=== PATIENT | female | born 1965 | race Caucasian/White ===

== ENCOUNTER 2016-06-02 08:30 | Emergency (ER) | payer SELFPAY ==
--- NOTE | 2016-06-02 08:54 | EDM.PDOC ---
ED HPI GENERAL MEDICAL PROBLEM - General Chief Complaint: Behavioral/Psych Stated Complaint: attempted suicide Time Seen by Provider: 06/02/16 08:48 - History of Present Illness INITIAL COMMENTS - FREE TEXT/NARRATIVE: HISTORY AND PHYSICAL: History of present illness: Patient's 50-year-old female who presents with a concern of depressive episode with suicidal ideation patient states she planned on taking an overdose of over- the-counter medications she did take several Sleep-Aid and brought with her there appear to be [id number] analgesics. She is awake alert cooperative eager for help with her depression she has been admitted in the past for depression. She denies any other ingestion or concern Review of systems: As per history of present illness and below otherwise all systems reviewed and negative. Past medical history: As per history of present illness and as reviewed below otherwise noncontributory. Surgical history: As per history of present illness and as reviewed below otherwise noncontributory. Social history: No reported history of drug or alcohol abuse. Family history: As per history of present illness and as reviewed below otherwise noncontributory. Physical exam: HEENT: Atraumatic, normocephalic, pupils reactive, negative for conjunctival pallor or scleral icterus, mucous membranes moist, throat clear, neck supple, nontender, trachea midline. Lungs: Clear to auscultation, breath sounds equal bilaterally, chest nontender. Heart: S1S2, regular, negative for clicks, rubs, or JVD. Abdomen: Soft, nondistended, nontender. Negative for masses or hepatosplenomegaly. Negative for costovertebral tenderness. Pelvis: Stable nontender. Genitourinary: Deferred. Rectal: Deferred. Extremities: Atraumatic, negative for cords or calf pain. Neurovascular unremarkable. Neuro: Awake, alert, oriented. Cranial nerves II through XII unremarkable. Cerebellum unremarkable. Motor and sensory unremarkable throughout. Exam nonfocal. Diagnostics: CBC CMP EKG aspirin Tylenol level UA urine drug screen hCG Therapeutics: None Impression: #1 depressive episode with suicidal ideation Definitive disposition and diagnosis as appropriate pending reevaluation and review of above. - Related Data Allergies Allergy/AdvReac Type Severity Reaction Status Date / Time No Known Allergies Allergy Verified 06/02/16 08:41 Home Meds: Home Meds Aspirin 1 tab PO DAILY PRN 02/02/16 [History] Past Medical History - Past Health History Medical/Surgical History: Denies Medical/Surgical History HEENT History: Reports: None Cardiovascular History: Reports: None Respiratory History: Reports: None Gastrointestinal History: Reports: None Genitourinary History: Reports: None OPERATING MANAGER History: Reports: None Musculoskeletal History: Reports: Back pain, chronic Other Musculoskeletal History: Sprained left knee in January, placed on brace Neurological History: Reports: None Psychiatric History: Reports: None Endocrine/Metabolic History: Reports: None Hematologic History: Reports: None Immunologic History: Reports: None Dermatologic History: Reports: None - Infectious Disease History Infectious Disease History: Reports: None - Past Surgical History HEENT Surgical History: Reports: Tonsillectomy Social & Family History - Family History Family Medical History: Noncontributory - Tobacco Use Smoking Status *Q: Current Every Day Smoker Years of Tobacco use: 15 Packs/Tins Daily: 1 - Caffeine Use Caffeine Use: Reports: Soda Caffeine Use Comment: 2cups/day - Alcohol Use Days Per Week of Alcohol Use: 1 Number of Drinks Per Day: 12 Total Drinks Per Week: 12 - Recreational Drug Use Recreational Drug Use: No ED ROS GENERAL - Review of Systems Review Of Systems: ROS reveals no pertinent complaints other than HPI. ED EXAM, GENERAL - Physical Exam Exam: See Below (See dictation) Course - Vital Signs Last Recorded V/S: Last Vital Signs Temp 36.1 C 06/02/16 08:44 Pulse 95 06/02/16 08:44 Resp 18 06/02/16 08:44 BP 124/72 06/02/16 08:44 Pulse Ox 98 06/02/16 08:44 - Orders/Labs/Meds Orders: Active Orders 24 hr Category Date Time Status EKG Documentation Completion [RC] STAT Care 06/02/16 08:52 Ordered ACETAMINOPHEN [CHEM] Stat Lab 06/02/16 08:51 Ordered CBC WITH AUTO DIFF [HEME] Stat Lab 06/02/16 08:51 Ordered COMPREHENSIVE METABOLIC PN,CMP [CHEM] Stat Lab 06/02/16 08:51 Ordered DRUG SCREEN, URINE [URCHEM] Stat Lab 06/02/16 08:51 Uncollected ETHANOL BLOOD MEDICAL [CHEM] Stat Lab 06/02/16 08:51 Ordered HCG QUALITATIVE,URINE [URCHEM] Stat Lab 06/02/16 08:51 Uncollected SALICYLATE [CHEM] Stat Lab 06/02/16 08:51 Ordered Departure - Departure Time of Disposition: 08:53 Disposition: DC/Tfer to Psych Hosp/Unit 65 Condition: good Clinical Impression: Depressive disorder Forms: ED Department Discharge - My Orders Last 24 Hours: My Active Orders 06/02/16 08:51 ACETAMINOPHEN [CHEM] Stat CBC WITH AUTO DIFF [HEME] Stat COMPREHENSIVE METABOLIC PN,CMP [CHEM] Stat DRUG SCREEN, URINE [URCHEM] Stat ETHANOL BLOOD MEDICAL [CHEM] Stat HCG QUALITATIVE,URINE [URCHEM] Stat SALICYLATE [CHEM] Stat 06/02/16 08:52 EKG Documentation Completion [RC] STAT - Assessment/Plan Last 24 Hours: My Active Orders 06/02/16 08:51 ACETAMINOPHEN [CHEM] Stat CBC WITH AUTO DIFF [HEME] Stat COMPREHENSIVE METABOLIC PN,CMP [CHEM] Stat DRUG SCREEN, URINE [URCHEM] Stat ETHANOL BLOOD MEDICAL [CHEM] Stat HCG QUALITATIVE,URINE [URCHEM] Stat SALICYLATE [CHEM] Stat 06/02/16 08:52 EKG Documentation Completion [RC] STAT
[2016-06-02 09:50] LABS: CHLORIDE,CL 106 mmol/L (98-110); SODIUM,NA 140 mmol/L (136-146)
[2016-06-02 09:57] VITALS: BP 134/93
[2016-06-02 10:09] LABS: ACETAMINOPHEN < 3.0 ug/mL
== END 2016-06-02 09:43 ==
LOC: MW.ED 08:30
DX: R45.851 Suicidal ideations (principal); F17.210 Nicotine dependence, cigarettes, uncomplicated
CPT/HCPCS: 36415; 80053; 80305; 81025; 85025; 93005; 99285; G0480; 99283

== ENCOUNTER 2016-07-08 12:02 | Observation (INO) | payer SELFPAY ==
[2016-07-08] MEDS ORDERED: Ondansetron 4 MG/2 ML SDV IVPUSH ONE ×2 (12:09→12:16)
[2016-07-08] MEDS ORDERED: Sodium Chloride 0.9% 1,000 ML IV ONE ×2 (12:09→12:16)
[2016-07-08] MEDS ORDERED: Ketorolac 30 MG/ML SDV IVPUSH ONE (12:16)
--- NOTE | 2016-07-08 12:37 | EDM.PDOC ---
ED HPI GENERAL MEDICAL PROBLEM - General Chief Complaint: Abdominal Pain Stated Complaint: gallbladder Time Seen by Provider: 07/08/16 12:25 Source of Information: Reports: Patient History Limitations: Reports: No Limitations - History of Present Illness INITIAL COMMENTS - FREE TEXT/NARRATIVE: History of present illness: [50-year-old female presents with complaints of abdominal pain. Patient indicates she has is her gallbladder she had it evaluated in February and she was told that he needed to be removed, but she has failed to get a primary care provider to initiate the workup and authorization. Patient indicates at this time that the pain is stabbing and she would like to be evaluated.] Review of systems: As per history of present illness and below otherwise all systems reviewed and negative. Past medical history: As per history of present illness and as reviewed below otherwise noncontributory. Surgical history: As per history of present illness and as reviewed below otherwise noncontributory. Social history: No reported history of drug or alcohol abuse. Family history: As per history of present illness and as reviewed below otherwise noncontributory. Physical exam: HEENT: Atraumatic, normocephalic, pupils reactive, negative for conjunctival pallor or scleral icterus, mucous membranes moist, throat clear, neck supple, nontender, trachea midline. Lungs: Clear to auscultation, breath sounds equal bilaterally, chest nontender. Heart: S1S2, regular, negative for clicks, rubs, or JVD. Abdomen: Soft, protuberant abdomen with exquisite tenderness in right upper quadrant. Negative for masses or hepatosplenomegaly. Negative for costovertebral tenderness. Pelvis: Stable nontender. Genitourinary: Deferred. Rectal: Deferred. Extremities: Atraumatic, negative for cords or calf pain. Neurovascular unremarkable. Neuro: Awake, alert, oriented. Cranial nerves II through XII unremarkable. Cerebellum unremarkable. Motor and sensory unremarkable throughout. Exam nonfocal. Dr. Garcia consulted, and presented to evaluate the patient in the ED. Decision made to admit the patient in the hospital and give her antibiotics prior to surgery Dr. Boone called patient to be admitted to the floor. Diagnostics: [CBC, CMP, UA, urine hCG, gallbladder ultrasound] Therapeutics: [The fluids, Zofran, Toradol] Impression: [Acute cholecystitis] Plan: [C consulted Dr. Stephenson,] Definitive disposition and diagnosis as appropriate pending reevaluation and review of above. Lower Abdominal Pain Score (Numeric/FACES): 8 - Related Data Allergies Allergy/AdvReac Type Severity Reaction Status Date / Time No Known Allergies Allergy Verified 07/08/16 12:08 Home Meds: Home Meds Aspirin 1 tab PO DAILY PRN 02/02/16 [History] FLUoxetine [PROzac] 20 mg PO DAILY 07/08/16 [History] Past Medical History - Past Health History Medical/Surgical History: Denies Medical/Surgical History HEENT History: Reports: None Cardiovascular History: Reports: None Respiratory History: Reports: None Gastrointestinal History: Reports: None Genitourinary History: Reports: None PRACTICE LEAD History: Reports: None Musculoskeletal History: Reports: Back Pain, Chronic Other Musculoskeletal History: Sprained left knee in January, placed on brace Neurological History: Reports: None Psychiatric History: Reports: Addiction, Other (See Below) Other Psychiatric History: Admitted in [place] Endocrine/Metabolic History: Reports: None Hematologic History: Reports: None Immunologic History: Reports: None Dermatologic History: Reports: None - Infectious Disease History Infectious Disease History: Reports: None - Past Surgical History HEENT Surgical History: Reports: Tonsillectomy Social & Family History - Family History Family Medical History: Noncontributory - Tobacco Use Smoking Status *Q: Current Every Day Smoker Years of Tobacco use: 30 Packs/Tins Daily: 1 - Caffeine Use Caffeine Use: Reports: Coffee Caffeine Use Comment: 2cups/day - Alcohol Use Days Per Week of Alcohol Use: 1 Number of Drinks Per Day: 12 Total Drinks Per Week: 12 - Recreational Drug Use Recreational Drug Use: No ED ROS GENERAL - Review of Systems Review Of Systems: See Below (See history of present illness) ED EXAM, GENERAL - Physical Exam Exam: See Below (See history of present illness) Course - Vital Signs Last Recorded V/S: Last Vital Signs Temp 36.5 C 07/08/16 13:31 Pulse 86 07/08/16 16:11 Resp 18 07/08/16 16:11 BP 126/83 07/08/16 16:11 Pulse Ox 100 07/08/16 16:11 - Orders/Labs/Meds Orders: Active Orders 24 hr Category Date Time Status Gallbladder [Abdomen Ltd] [US] Stat Exams 07/08/16 13:19 Taken Lactated Ringers @ 125 MLS/HR(1,000ml) Med 07/08/16 16:15 Ordered Lactated Ringers [Ringers, Lactated] 1,000 ml IV ASDIRECTED Piperacillin/Tazobactam [Piperacil-Tazobact] 3.375 gm Med 07/08/16 16:15 Ordered Sodium Chloride 0.9% [Normal Saline] 50 ml IV Q8H Medication Orders Piperacillin Sod/Tazobactam (Sod 3.375 gm/ Sodium Chloride) 50 mls @ 100 mls/ hr IV Q8H ESTHER Lactated Ringer's (Ringers, Lactated) 1,000 mls @ 125 mls/hr IV ASDIRECTED [facility] Labs: Laboratory Tests 07/08/16 07/08/16 07/08/16 Range/Units 12:08 12:08 12:08 WBC Cancelled 12.86 H RBC Cancelled 4.59 Hgb Cancelled 14.2 Hct Cancelled 42.3 MCV Cancelled 92.2 MCH Cancelled 30.9 MCHC Cancelled 33.6 RDW Std Deviation Cancelled 44.9 RDW Coeff of Lucien Cancelled 13 Plt Count Cancelled 267 MPV Cancelled 10.40 Neut % (Auto) Cancelled 68.6 Lymph % (Auto) Cancelled 22.5 [place] % (Auto) Cancelled 6.8 Eos % (Auto) Cancelled 1.8 Baso % (Auto) Cancelled 0.3 Neut # (Auto) Cancelled 8.8 H Lymph # (Auto) Cancelled 2.9 H [place] # (Auto) Cancelled 0.9 H Eos # (Auto) Cancelled 0.2 Baso # (Auto) Cancelled 0.0 Add Manual Diff Cancelled Nucleated RBC % Cancelled 0.0 Nucleated RBCs # Cancelled 0 Sodium 139 (136-146) mmol/L Potassium 4.0 (3.5-5.1) mmol/L Chloride 110 (98-110) mmol/L Carbon Dioxide 16 L (21-31) mmol/L BUN 16 (6.0-23.0) mg/dL Creatinine 0.8 (0.6-1.5) mg/dL Est Cr Clr Drug Dosing 61.77 mL/min Estimated GFR (MDRD) > 60.0 ml/min Glucose 117 H (60-110) mg/dL Calcium 9.0 (8.8-10.8) mg/dL Total Bilirubin 0.3 (0.1-1.5) mg/dL AST 19 (5-40) IU/L ALT 21 (8-54) IU/L Alkaline Phosphatase 87 (40-150) Total Protein 7.8 (6.0-8.0) g/dL Albumin 4.4 (3.5-5.0) g/dL Globulin 3.4 (2.0-3.5) g/dL Albumin/Globulin Ratio 1.3 (1.3-2.8) Urine Color Urine Appearance Urine pH (5.0-8.0) Ur Specific [place] (1.001-1.035) Urine Protein (NEGATIVE) mg/dL Urine Glucose (UA) (NEGATIVE) mg/dL Urine Ketones (NEGATIVE) mg/dL Urine Occult Blood (NEGATIVE) Urine Nitrite (NEGATIVE) Urine Bilirubin (NEGATIVE) Urine Urobilinogen (<2.0) EU/dL Ur Leukocyte Esterase (NEGATIVE) Urine RBC (0-2/HPF) Urine WBC (0-5/HPF) Ur Epithelial Cells (NONE-FEW) Urine Bacteria (NEGATIVE) Urine Mucus (NONE-MOD) Urine HCG, Qual 07/08/16 07/08/16 07/08/16 Range/Units 12:12 12:12 12:12 WBC RBC Hgb Hct MCV MCH MCHC RDW Std Deviation RDW Coeff of Lucien Plt Count MPV Neut % (Auto) Lymph % (Auto) [place] % (Auto) Eos % (Auto) Baso % (Auto) Neut # (Auto) Lymph # (Auto) [place] # (Auto) Eos # (Auto) Baso # (Auto) Add Manual Diff Nucleated RBC % Nucleated RBCs # Sodium (136-146) mmol/L Potassium (3.5-5.1) mmol/L Chloride (98-110) mmol/L Carbon Dioxide (21-31) mmol/L BUN (6.0-23.0) mg/dL Creatinine (0.6-1.5) mg/dL Est Cr Clr Drug Dosing mL/min Estimated GFR (MDRD) ml/min Glucose (60-110) mg/dL Calcium (8.8-10.8) mg/dL Total Bilirubin (0.1-1.5) mg/dL AST (5-40) IU/L ALT (8-54) IU/L Alkaline Phosphatase (40-150) Total Protein (6.0-8.0) g/dL Albumin (3.5-5.0) g/dL Globulin (2.0-3.5) g/dL Albumin/Globulin Ratio (1.3-2.8) Urine Color YELLOW Urine Appearance CLEAR Urine pH 5.0 (5.0-8.0) Ur Specific [place] >= 1.030 (1.001-1.035) Urine Protein NEGATIVE (NEGATIVE) mg/dL Urine Glucose (UA) NEGATIVE (NEGATIVE) mg/dL Urine Ketones NEGATIVE (NEGATIVE) mg/dL Urine Occult Blood NEGATIVE (NEGATIVE) Urine Nitrite NEGATIVE (NEGATIVE) Urine Bilirubin NEGATIVE (NEGATIVE) Urine Urobilinogen 0.2 (<2.0) EU/dL Ur Leukocyte Esterase NEGATIVE (NEGATIVE) Urine RBC NONE SEEN (0-2/HPF) Urine WBC 0-2 (0-5/HPF) Ur Epithelial Cells FEW (NONE-FEW) Urine Bacteria FEW (NEGATIVE) Urine Mucus LIGHT (NONE-MOD) Urine HCG, Qual Cancelled NEGATIVE Meds: Medications Generic Name Dose Route Start Last Admin Trade Name Freq PRN Reason Stop Dose Admin Piperacillin Sod/Tazobactam 50 mls @ 100 mls/hr 07/08/16 16:15 Sod 3.375 gm/ Sodium Chloride IV Q8H ESTHER Lactated Ringer's 1,000 mls @ 125 mls/hr 07/08/16 16:15 Ringers, Lactated IV ASDIRECTED ESTHER Discontinued Medications Generic Name Dose Route Start Last Admin Trade Name Freq PRN Reason Stop Dose Admin Sodium Chloride 1,000 mls @ 999 mls/hr 07/08/16 12:09 07/08/16 12:33 Normal Saline IV 07/08/16 13:09 Not Given STAT ONE Sodium Chloride 1,000 mls @ 999 mls/hr 07/08/16 12:16 07/08/16 12:30 Normal Saline IV 07/08/16 13:16 999 mls/hr STAT ONE Administration Ketorolac Tromethamine 30 mg 07/08/16 12:16 07/08/16 12:31 Toradol IVPUSH 07/08/16 12:17 30 mg ONETIME ONE Administration Ondansetron HCl 8 mg 07/08/16 12:09 07/08/16 12:33 Zofran IVPUSH 07/08/16 12:10 Not Given ONETIME ONE Ondansetron HCl 8 mg 07/08/16 12:16 07/08/16 12:30 Zofran IVPUSH 07/08/16 12:17 8 mg ONETIME ONE Administration Departure - Departure Time of Disposition: 16:12 Disposition: Admitted As Inpatient 66 Condition: good Clinical Impression: Biliary colic - Discharge Information - My Orders Last 24 Hours: My Active Orders 07/08/16 13:19 Gallbladder [Abdomen Ltd] [US] Stat 07/08/16 16:15 Lactated Ringers @ 125 MLS/HR(1,000ml) Lactated Ringers [Ringers, Lactated] 1, 000 ml IV ASDIRECTED Piperacillin/Tazobactam [Piperacil-Tazobact] 3.375 gm Sodium Chloride 0.9% [ Normal Saline] 50 ml IV Q8H - Assessment/Plan Last 24 Hours: My Active Orders 07/08/16 13:19 Gallbladder [Abdomen Ltd] [US] Stat 07/08/16 16:15 Lactated Ringers @ 125 MLS/HR(1,000ml) Lactated Ringers [Ringers, Lactated] 1, 000 ml IV ASDIRECTED Piperacillin/Tazobactam [Piperacil-Tazobact] 3.375 gm Sodium Chloride 0.9% [ Normal Saline] 50 ml IV Q8H
[2016-07-08 13:03] LABS: CHLORIDE,CL 110 mmol/L (98-110); SODIUM,NA 139 mmol/L (136-146)
[2016-07-08] MEDS ORDERED: Lactated Ringers 1,000 ML IV SCH (16:15)
[2016-07-08] MEDS ORDERED: Piperacillin/Tazobactam 3.375 GM in Sodium Chloride 0.9% 50 ML IV SCH (16:15)
--- NOTE | 2016-07-08 16:16 | PCM.CONS ---
H&P History of Present Illness - General Date of Service: 07/08/16 Admit Problem/Dx: Acute cholecystitis Source of Information: Patient History Limitations: Reports: No Limitations - History of Present Illness Initial Comments - Free Text/Narative: Patient is a 50 year old female with a known history of cholelithiasis who presents to the ED with a 2 week history of RUQ pain. The patient states that it has been constant. The patient has been taking aspirin to control her pain, but this has not been helping lately. The pain has been getting progressively more and more severe until the patient couldn't take it anymore and presented to the ED today. She had no appetite this morning. She claims to have claims to have nausea and vomiting. She felt subjectively warm last night. She denies chills. She was given toradol and IVFs and feels much better. 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: None Musculoskeletal History: Reports: Back Pain, Chronic Other Musculoskeletal History: Sprained left knee in January, placed on brace Neurological History: Reports: None Psychiatric History: Reports: Addiction, Depression, Other (See Below) Other Psychiatric History: Admitted in [place] Endocrine/Metabolic History: Reports: None Hematologic History: Reports: None Immunologic History: Reports: None Oncologic (Cancer) History: Reports: None Dermatologic History: Reports: None - Infectious Disease History Infectious Disease History: Reports: None - Past Surgical History HEENT Surgical History: Reports: Tonsillectomy Social & Family History - Family History Family Medical History: Noncontributory - Tobacco Use Smoking Status *Q: Current Every Day Smoker Years of Tobacco use: 30 Packs/Tins Daily: 1 - Caffeine Use Caffeine Use: Reports: Coffee Caffeine Use Comment: 2cups/day - Alcohol Use Days Per Week of Alcohol Use: 1 Number of Drinks Per Day: 12 Total Drinks Per Week: 12 - Recreational Drug Use Recreational Drug Use: No H&P Review of Systems - Review of Systems: Review Of Systems: See Below General: Reports: Fever, Malaise, Decreased Appetite HEENT: Reports: No Symptoms Pulmonary: Reports: No Symptoms Cardiovascular: Reports: No Symptoms Gastrointestinal: Reports: Abdominal Pain, Anorexia Genitourinary: Reports: No Symptoms Skin: Reports: No Symptoms Psychiatric: Reports: No Symptoms Exam - Exam Exam: See Below - Vital Signs Vital Signs: Last Vital Signs Temp 36.5 C 07/08/16 13:31 Pulse 80 07/08/16 14:54 Resp 16 07/08/16 14:54 BP 142/76 H 07/08/16 14:54 Pulse Ox 98 07/08/16 14:54 Weight: 86.2 kg - Exam General: Alert, Oriented. No: Mild Distress HEENT: Conjunctiva Clear, Hearing Intact, Mucosa Moist & [place], Normal Nasal Septum, Pupils Equal, Pupils Reactive Neck: Supple Lungs: Clear to Auscultation, Normal Respiratory Effort Cardiovascular: Regular Rate, Regular Rhythm Abdomen: Normal Bowel Sounds, Soft, Curtis's Sign. No: Peritoneal Signs, Distention, Guarding, Rigidity Back Exam: Normal Inspection, Full Range of Motion Extremities: Normal Inspection Skin: Warm, Dry, Intact Neuro Extensive - Mental Status: Alert, Oriented x3 Psychiatric: Alert, Normal Affect, Normal Mood - Patient Data Lab Results last 24 hrs: Laboratory Results - last 24 hr 07/08/16 07/08/16 07/08/16 Range/Units 12:08 12:08 12:08 WBC Cancelled 12.86 H RBC Cancelled 4.59 Hgb Cancelled 14.2 Hct Cancelled 42.3 MCV Cancelled 92.2 MCH Cancelled 30.9 MCHC Cancelled 33.6 RDW Std Deviation Cancelled 44.9 RDW Coeff of Lucien Cancelled 13 Plt Count Cancelled 267 MPV Cancelled 10.40 Neut % (Auto) Cancelled 68.6 Lymph % (Auto) Cancelled 22.5 [place] % (Auto) Cancelled 6.8 Eos % (Auto) Cancelled 1.8 Baso % (Auto) Cancelled 0.3 Neut # (Auto) Cancelled 8.8 H Lymph # (Auto) Cancelled 2.9 H [place] # (Auto) Cancelled 0.9 H Eos # (Auto) Cancelled 0.2 Baso # (Auto) Cancelled 0.0 Add Manual Diff Cancelled Nucleated RBC % Cancelled 0.0 Nucleated RBCs # Cancelled 0 Sodium 139 (136-146) mmol/L Potassium 4.0 (3.5-5.1) mmol/L Chloride 110 (98-110) mmol/L Carbon Dioxide 16 L (21-31) mmol/L BUN 16 (6.0-23.0) mg/dL Creatinine 0.8 (0.6-1.5) mg/dL Est Cr Clr Drug Dosing 61.77 mL/min Estimated GFR (MDRD) > 60.0 ml/min Glucose 117 H (60-110) mg/dL Calcium 9.0 (8.8-10.8) mg/dL Total Bilirubin 0.3 (0.1-1.5) mg/dL AST 19 (5-40) IU/L ALT 21 (8-54) IU/L Alkaline Phosphatase 87 (40-150) Total Protein 7.8 (6.0-8.0) g/dL Albumin 4.4 (3.5-5.0) g/dL Globulin 3.4 (2.0-3.5) g/dL Albumin/Globulin Ratio 1.3 (1.3-2.8) Urine Color Urine Appearance Urine pH (5.0-8.0) Ur Specific [place] (1.001-1.035) Urine Protein (NEGATIVE) mg/dL Urine Glucose (UA) (NEGATIVE) mg/dL Urine Ketones (NEGATIVE) mg/dL Urine Occult Blood (NEGATIVE) Urine Nitrite (NEGATIVE) Urine Bilirubin (NEGATIVE) Urine Urobilinogen (<2.0) EU/dL Ur Leukocyte Esterase (NEGATIVE) Urine RBC (0-2/HPF) Urine WBC (0-5/HPF) Ur Epithelial Cells (NONE-FEW) Urine Bacteria (NEGATIVE) Urine Mucus (NONE-MOD) Urine HCG, Qual 07/08/16 07/08/16 07/08/16 Range/Units 12:12 12:12 12:12 WBC RBC Hgb Hct MCV MCH MCHC RDW Std Deviation RDW Coeff of Lucien Plt Count MPV Neut % (Auto) Lymph % (Auto) [place] % (Auto) Eos % (Auto) Baso % (Auto) Neut # (Auto) Lymph # (Auto) [place] # (Auto) Eos # (Auto) Baso # (Auto) Add Manual Diff Nucleated RBC % Nucleated RBCs # Sodium (136-146) mmol/L Potassium (3.5-5.1) mmol/L Chloride (98-110) mmol/L Carbon Dioxide (21-31) mmol/L BUN (6.0-23.0) mg/dL Creatinine (0.6-1.5) mg/dL Est Cr Clr Drug Dosing mL/min Estimated GFR (MDRD) ml/min Glucose (60-110) mg/dL Calcium (8.8-10.8) mg/dL Total Bilirubin (0.1-1.5) mg/dL AST (5-40) IU/L ALT (8-54) IU/L Alkaline Phosphatase (40-150) Total Protein (6.0-8.0) g/dL Albumin (3.5-5.0) g/dL Globulin (2.0-3.5) g/dL Albumin/Globulin Ratio (1.3-2.8) Urine Color YELLOW Urine Appearance CLEAR Urine pH 5.0 (5.0-8.0) Ur Specific [place] >= 1.030 (1.001-1.035) Urine Protein NEGATIVE (NEGATIVE) mg/dL Urine Glucose (UA) NEGATIVE (NEGATIVE) mg/dL Urine Ketones NEGATIVE (NEGATIVE) mg/dL Urine Occult Blood NEGATIVE (NEGATIVE) Urine Nitrite NEGATIVE (NEGATIVE) Urine Bilirubin NEGATIVE (NEGATIVE) Urine Urobilinogen 0.2 (<2.0) EU/dL Ur Leukocyte Esterase NEGATIVE (NEGATIVE) Urine RBC NONE SEEN (0-2/HPF) Urine WBC 0-2 (0-5/HPF) Ur Epithelial Cells FEW (NONE-FEW) Urine Bacteria FEW (NEGATIVE) Urine Mucus LIGHT (NONE-MOD) Urine HCG, Qual Cancelled NEGATIVE Result Diagrams: 07/08/16 12:08 07/08/16 12:08 Consult PN Assessment/Plan Procedures: Procedures ASSAY OF BLOOD/URIC ACID (02/02/16) COMPLETE CBC W/AUTO DIFF WBC (06/02/16) COMPREHEN METABOLIC PANEL (06/02/16) CT ABD & PELV W/CONTRAST (03/12/16) DRUG TEST PRSMV DIR OPT OBS (06/02/16) ELECTROCARDIOGRAM TRACING (06/02/16) EMERGENCY DEPT VISIT (06/02/16) EMERGENCY DEPT VISIT (03/12/16) HYDRATE IV INFUSION ADD-ON (03/12/16) ROUTINE VENIPUNCTURE (06/02/16) THER/PROPH/DIAG INJ IV PUSH (03/12/16) TX/PRO/DX INJ NEW DRUG ADDON (03/12/16) URINALYSIS AUTO W/SCOPE (03/12/16) URINE TEST (06/02/16) X-RAY EXAM OF KNEE 3 (02/02/16) (1) Acute calculous cholecystitis SNOMED Code(s): 52091931 Code(s): K80.00 - CALCULUS OF GALLBLADDER W ACUTE CHOLECYST W/O OBSTRUCTION Current Visit: Yes Problem List Initiated/Reviewed/Updated: Yes Plan: Patient has had over 72 hours of pain which would make surgery at this time very difficult and increase the risk of intraoperative complications. Also the patient has been taking aspirin frequently and was given toradol in the ED increasing the risk for intraoperative bleeding. I explained the pathophysiology of biliary disease to the patient. My plan at this time would be to admit her for IV antibiotics (zosyn), IVF, and npo (except ice chips and meds) to control the infection and decrease inflammation. Will check LFTs and CBC in the am. As soon as her WBC is within normal limits we can advance her diet and transition her to oral antibiotics for 2 weeks. Patient is already feeling better and I anticipate that she will do well overnight. I will follow her while she is in house. Appreciate medicines assistance in the care of this patient.
[2016-07-08] MEDS ORDERED: Ondansetron 8 MG Tab.DIS PO PRN (17:10)
[2016-07-08] MEDS ORDERED: Temazepam 15 MG Cap PO PRN (17:11)
[2016-07-08] MEDS: Enoxaparin 40 MG/0.4 ML Syringe SUBCUT SCH (17:22)
[2016-07-08] MEDS: Sodium Chloride 0.9% 1,000 ML IV SCH (17:23)
[2016-07-08] MEDS: metroNIDAZOLE/Normal Saline 500 MG in Premix Bag 1 BAG IV SCH (17:25)
[2016-07-08] MEDS: Pantoprazole 40 MG in Sodium Chloride 0.9% 10 ML IVPUSH SCH (18:24)
[2016-07-08] MEDS: Nicotine 14 MG/24 Hr Patch TRDERM SCH (19:58)
[2016-07-08] MEDS: Morphine 4 MG/ML Syringe IVPUSH PRN (20:55)
[2016-07-08] MEDS: Piperacillin/Tazobactam 4.5 GM in Sodium Chloride 0.9% 100 ML IV SCH (21:08)
[2016-07-09] MEDS: metroNIDAZOLE/Normal Saline 500 MG in Premix Bag 1 BAG IV SCH ×3 (00:18→11:58)
[2016-07-09] MEDS: Morphine 4 MG/ML Syringe IVPUSH PRN ×2 (01:01→10:18)
[2016-07-09] MEDS: Piperacillin/Tazobactam 4.5 GM in Sodium Chloride 0.9% 100 ML IV SCH ×3 (04:26→15:54)
[2016-07-09 06:49] LABS: CHLORIDE,CL 112 mmol/L (98-110); SODIUM,NA 142 mmol/L (136-146)
--- NOTE | 2016-07-09 07:26 | PCM.PN ---
- General Info Date of Service: 07/09/16 Admission Dx/Problem (Free Text): Acute appendicitis Subjective Update: Patient continues to have RUQ pain, but it is better controlled. Her VS were stable overnight. She was NPO but denies nausea. - Review of Systems General: Reports: No Symptoms Gastrointestinal: Reports: No symptoms - Patient Data Vitals - most recent: Last Vital Signs Temp 36.5 C 07/09/16 04:00 Pulse 86 07/09/16 04:00 Resp 18 07/09/16 04:00 BP 127/70 07/09/16 04:00 Pulse Ox 92 L 07/09/16 04:00 Weight - most recent: 85.6 kg I&O - last 24 hours: Intake & Output 07/08/16 07/09/16 07/09/16 22:59 06:59 14:59 Intake Total 210 200 Output Total 500 Balance 210 -300 Lab Results last 24 hrs: Laboratory Results - last 24 hr 07/09/16 07/09/16 Range/Units 05:54 05:54 WBC 9.62 (4.0-11.0) K/uL RBC 4.18 L (4.30-5.90) M/uL Hgb 12.7 (12.0-16.0) g/dL Hct 39.1 (36.0-46.0) % MCV 93.5 (80.0-98.0) fL MCH 30.4 (27.0-32.0) pg MCHC 32.5 (31.0-37.0) g/dL RDW Std Deviation 46.1 (28.0-62.0) fl RDW Coeff of Lucien 13 (11.0-15.0) % Plt Count 198 (150-400) K/uL MPV 10.20 (7.40-12.00) fL Neut % (Auto) 72.4 (48.0-80.0) % Lymph % (Auto) 17.3 (16.0-40.0) % [place] % (Auto) 8.4 (0.0-15.0) % Eos % (Auto) 1.7 (0.0-7.0) % Baso % (Auto) 0.2 (0.0-1.5) % Neut # (Auto) 7.0 H (1.4-5.7) K/uL Lymph # (Auto) 1.7 (0.6-2.4) K/uL [place] # (Auto) 0.8 (0.0-0.8) K/uL Eos # (Auto) 0.2 (0.0-0.7) K/uL Baso # (Auto) 0.0 (0.0-0.1) K/uL Nucleated RBC % 0.0 /100WBC Nucleated RBCs # 0 K/uL Sodium 142 (136-146) mmol/L Potassium 4.5 (3.5-5.1) mmol/L Chloride 112 H (98-110) mmol/L Carbon Dioxide 20 L (21-31) mmol/L BUN 10 (6.0-23.0) mg/dL Creatinine 0.7 (0.6-1.5) mg/dL Est Cr Clr Drug Dosing 70.60 mL/min Estimated GFR (MDRD) > 60.0 ml/min Glucose 104 (60-110) mg/dL Calcium 8.1 L (8.8-10.8) mg/dL Phosphorus 3.8 (2.4-4.7) mg/dL Magnesium 1.6 (1.5-2.3) mEq/L Total Bilirubin 0.6 (0.1-1.5) mg/dL AST 75 H (5-40) IU/L ALT 59 H (8-54) IU/L Alkaline Phosphatase 109 (40-150) Total Protein 6.3 (6.0-8.0) g/dL Albumin 3.8 (3.5-5.0) g/dL Globulin 2.5 (2.0-3.5) g/dL Albumin/Globulin Ratio 1.5 (1.3-2.8) Med Orders - Current: Current Medications Enoxaparin Sodium (Lovenox) 40 mg SUBCUT DAILY [facility] Last Admin: 07/08/16 17:22 Dose: 40 mg Fluoxetine HCl (Prozac) 20 mg PO DAILY [facility] Sodium Chloride (Normal Saline) 1,000 mls @ 100 mls/hr IV ASDIRECTED [facility] Last Admin: 07/08/16 17:23 Dose: 100 mls/hr Piperacillin Sod/Tazobactam (Sod 4.5 gm/ Sodium Chloride) 100 mls @ 100 mls/hr IV Q6H [facility] Last Infusion: 07/09/16 05:30 Dose: Infused Metronidazole 500 mg/ Premix 100 mls @ 100 mls/hr IV Q6H [facility] Last Admin: 07/09/16 06:13 Dose: 100 mls/hr Pantoprazole Sodium 40 mg/ (Sodium Chloride) 10 mls @ 300 mls/hr IVPUSH DAILY [facility] Last Admin: 07/08/16 18:24 Dose: 300 mls/hr Morphine Sulfate (Morphine) 4 mg IVPUSH Q4H PRN PRN Reason: Pain Last Admin: 07/09/16 01:01 Dose: 4 mg Nicotine (Habitrol) 14 mg TRDERM DAILY [facility] Last Admin: 07/08/16 19:58 Dose: 14 mg Ondansetron HCl (Zofran Odt) 8 mg PO Q8H PRN PRN Reason: Nausea/Vomiting Temazepam (Restoril) 15 mg PO BEDTIME PRN PRN Reason: Insomnia Discontinued Medications Sodium Chloride (Normal Saline) 1,000 mls @ 999 mls/hr IV STAT ONE Stop: 07/08/16 13:09 Last Admin: 07/08/16 12:33 Dose: Not Given Sodium Chloride (Normal Saline) 1,000 mls @ 999 mls/hr IV STAT ONE Stop: 07/08/16 13:16 Last Admin: 07/08/16 12:30 Dose: 999 mls/hr Piperacillin Sod/Tazobactam (Sod 3.375 gm/ Sodium Chloride) 50 mls @ 100 mls/ hr IV Q8H [facility] Last Admin: 07/08/16 16:20 Dose: 100 mls/hr Lactated Ringer's (Ringers, Lactated) 1,000 mls @ 125 mls/hr IV ASDIRECTED [facility] Ketorolac Tromethamine (Toradol) 30 mg IVPUSH ONETIME ONE Stop: 07/08/16 12:17 Last Admin: 07/08/16 12:31 Dose: 30 mg Ondansetron HCl (Zofran) 8 mg IVPUSH ONETIME ONE Stop: 07/08/16 12:10 Last Admin: 07/08/16 12:33 Dose: Not Given Ondansetron HCl (Zofran) 8 mg IVPUSH ONETIME ONE Stop: 07/08/16 12:17 Last Admin: 07/08/16 12:30 Dose: 8 mg - Exam General: alert, oriented Lungs: Normal respiratory effort Cardiovascular: Regular Rate Abdomen: soft, no distension, tenderness (in RUQ) Back Exam: Normal Inspection Extremities: no edema Skin: warm, dry, intact Psy/Mental Status: alert, normal affect, normal mood - Problem List & Annotations (1) Biliary colic SNOMED Code(s): 14943668 Code(s): K80.50 - CALCULUS OF BILE DUCT W/O CHOLANGITIS OR CHOLECYST W/O OBST Status: Acute Current Visit: Yes - Problem List Review Problem List Initiated/Reviewed/Updated: Yes - Plan Plan:: Ok to transition to oral narcotic pain medications. Advance diet as tolerated. Switch to oral antibiotics (ciprofloxacin, flagyl) to treat for a total of 10 days. Would monitor patient take as she starts diet, oral pain meds, and oral antibiotics. If stable later tonight could discharge. Would have follow up in 2 weeks with me in clinic.
[2016-07-09] MEDS: Nicotine 14 MG/24 Hr Patch TRDERM SCH (08:11)
[2016-07-09] MEDS: Enoxaparin 40 MG/0.4 ML Syringe SUBCUT SCH (08:14)
[2016-07-09] MEDS ORDERED: FLUoxetine 20 MG Cap PO SCH (09:00)
[2016-07-09] MEDS ORDERED: Albuterol/Ipratropium 3.0-0.5 MG/3 ML Neb Soln NEB PRN (09:15)
[2016-07-09] MEDS: Pantoprazole 40 MG in Sodium Chloride 0.9% 10 ML IVPUSH SCH (09:54)
[2016-07-09] MEDS: Sodium Chloride 0.9% 1,000 ML IV SCH (10:23)
--- NOTE | 2016-07-09 10:53 | PCM.HP ---
H&P History of Present Illness - General Date of Service: 07/09/16 Admit Problem/Dx: cholelithiasis with cholecystitis Source of Information: Patient History Limitations: Reports: No Limitations - History of Present Illness Initial Comments - Free Text/Narative: The patient's a 50-year-old lady who presented to the emergency department with severe right upper quadrant abdominal pain. The patient says that she has a known history of gallstones and today she had an attack which started yesterday and she described the pain as sharp cramping and unrelenting. The patient has denied radiation of the pain. The patient says that the pain is been aggravated by eating and it's been relieved by narcotic pain medications. The patient has denied any jaundice. Patient also has denied any fever or chills. She has however, had nausea and vomiting associated with this as well as diarrhea or loose stools since she was diagnosed earlier this year with cholelithiasis. The patient has been in her usual state of health up at the present time. Surgery on -call was consulted to the emergency department yesterday. Onset of Symptoms: Reports: Today Duration of Symptoms: Reports: Chronic, Getting Worse Location: Reports: Abdomen Quality: Reports: Same as Previous Episode, Stabbing, Throbbing Improves with: Reports: Medication Worsens with: Reports: Eating Lower Abdominal Pain Score (Numeric/FACES): 4 - Related Data Allergies/Adverse Reactions: Allergies Allergy/AdvReac Type Severity Reaction Status Date / Time No Known Allergies Allergy Verified 07/08/16 12:08 Home Medications: Home Meds Aspirin 1 tab PO DAILY PRN 02/02/16 [History] FLUoxetine [PROzac] 20 mg PO DAILY 07/08/16 [History] Past Medical History - Past Health History Medical/Surgical History: Denies Medical/Surgical History HEENT History: Reports: None Cardiovascular History: Reports: None Respiratory History: Reports: None Gastrointestinal History: Reports: None Genitourinary History: Reports: None UROLOGY SURGEON History: Reports: None Musculoskeletal History: Reports: Back Pain, Chronic Other Musculoskeletal History: Sprained left knee in January, placed on brace Neurological History: Reports: None Psychiatric History: Reports: Addiction, Depression, Other (See Below) Other Psychiatric History: Admitted in [place] Endocrine/Metabolic History: Reports: None Hematologic History: Reports: None Immunologic History: Reports: None Oncologic (Cancer) History: Reports: None Dermatologic History: Reports: None - Infectious Disease History Infectious Disease History: Reports: None - Past Surgical History Head Surgeries/Procedures: Reports: None HEENT Surgical History: Reports: Tonsillectomy Cardiovascular Surgical History: Reports: None Social & Family History - Family History Family Medical History: Noncontributory - Tobacco Use Smoking Status *Q: Current Every Day Smoker Years of Tobacco use: 33 Packs/Tins Daily: 0.5 Second Hand Smoke Exposure: Yes - Caffeine Use Caffeine Use: Reports: Coffee, Soda Caffeine Use Comment: 2cups/day - Alcohol Use Days Per Week of Alcohol Use: 1 Number of Drinks Per Day: 1 Total Drinks Per Week: 1 - Recreational Drug Use Recreational Drug Use: No H&P Review of Systems - Review of Systems: Review Of Systems: See Below General: Reports: Decreased Appetite HEENT: Reports: No Symptoms Pulmonary: Reports: Shortness of Breath, Wheezing Cardiovascular: Reports: No Symptoms Gastrointestinal: Reports: Abdominal Pain, Anorexia, Nausea, Vomiting Genitourinary: Reports: No Symptoms Musculoskeletal: Reports: No Symptoms Skin: Reports: No Symptoms Psychiatric: Reports: No Symptoms Neurological: Reports: No Symptoms Hematologic/Lymphatic: Reports: No Symptoms Immunologic: Reports: No Symptoms Exam - Exam Exam: See Below - Vital Signs Vital Signs: Last Vital Signs Temp 36.7 C 07/09/16 08:00 Pulse 78 07/09/16 08:00 Resp 20 07/09/16 08:00 BP 132/60 07/09/16 08:00 Pulse Ox 94 L 07/09/16 08:00 Weight: 85.6 kg - Exam Quality Assessment: No: Supplemental Oxygen General: Alert, Oriented, Cooperative, Mild Distress HEENT: Conjunctiva Clear, EACs Clear, Nares Patent. No: Mucosa Moist & [place] ( oropharynx dry) Neck: Supple, Trachea Midline Lungs: Decreased Breath Sounds, Wheezing (diffuse) Cardiovascular: Regular Rate, Regular Rhythm Abdomen: Soft, Tenderness (right upper quadrant), Hypoactive Bowel Sounds, Curtis's Sign Back Exam: Normal Inspection Extremities: Normal Inspection Skin: Warm, Dry, Intact Neurological: Cranial Nerves Intact Neuro Extensive - Mental Status: Alert, Oriented x3 Neuro Extensive - Motor, Sensory, Reflexes: CN II-XII Intact Psychiatric: Alert, Normal Affect, Normal Mood - Patient Data Lab Results last 24 hrs: Laboratory Results - last 24 hr 07/09/16 07/09/16 Range/Units 05:54 05:54 WBC 9.62 (4.0-11.0) K/uL RBC 4.18 L (4.30-5.90) M/uL Hgb 12.7 (12.0-16.0) g/dL Hct 39.1 (36.0-46.0) % MCV 93.5 (80.0-98.0) fL MCH 30.4 (27.0-32.0) pg MCHC 32.5 (31.0-37.0) g/dL RDW Std Deviation 46.1 (28.0-62.0) fl RDW Coeff of Lucien 13 (11.0-15.0) % Plt Count 198 (150-400) K/uL MPV 10.20 (7.40-12.00) fL Neut % (Auto) 72.4 (48.0-80.0) % Lymph % (Auto) 17.3 (16.0-40.0) % [place] % (Auto) 8.4 (0.0-15.0) % Eos % (Auto) 1.7 (0.0-7.0) % Baso % (Auto) 0.2 (0.0-1.5) % Neut # (Auto) 7.0 H (1.4-5.7) K/uL Lymph # (Auto) 1.7 (0.6-2.4) K/uL [place] # (Auto) 0.8 (0.0-0.8) K/uL Eos # (Auto) 0.2 (0.0-0.7) K/uL Baso # (Auto) 0.0 (0.0-0.1) K/uL Nucleated RBC % 0.0 /100WBC Nucleated RBCs # 0 K/uL Sodium 142 (136-146) mmol/L Potassium 4.5 (3.5-5.1) mmol/L Chloride 112 H (98-110) mmol/L Carbon Dioxide 20 L (21-31) mmol/L BUN 10 (6.0-23.0) mg/dL Creatinine 0.7 (0.6-1.5) mg/dL Est Cr Clr Drug Dosing 70.60 mL/min Estimated GFR (MDRD) > 60.0 ml/min Glucose 104 (60-110) mg/dL Calcium 8.1 L (8.8-10.8) mg/dL Phosphorus 3.8 (2.4-4.7) mg/dL Magnesium 1.6 (1.5-2.3) mEq/L Total Bilirubin 0.6 (0.1-1.5) mg/dL AST 75 H (5-40) IU/L ALT 59 H (8-54) IU/L Alkaline Phosphatase 109 (40-150) Total Protein 6.3 (6.0-8.0) g/dL Albumin 3.8 (3.5-5.0) g/dL Globulin 2.5 (2.0-3.5) g/dL Albumin/Globulin Ratio 1.5 (1.3-2.8) Result Diagrams: 07/09/16 05:54 07/09/16 05:54 *Q Meaningful Use (ADM) - VTE *Q VTE Criteria *Q: - VTE Risk Assess *Q Each Risk Factor Represents 1 Point: Age 41 - 59 years, Minor Surgery Planned Total Score 1 Point Risk Factors: 2 - Stroke *Q Stroke Criteria *Q: - AMI *Q AMI Criteria *Q: - Problem List (1) Biliary colic SNOMED Code(s): 32190779 ICD Code: K80.50 - CALCULUS OF BILE DUCT W/O CHOLANGITIS OR CHOLECYST W/O OBST Status: Acute Current Visit: Yes (2) Hypoxia SNOMED Code(s): 062185638, 517654246 ICD Code: R09.02 - HYPOXEMIA Status: Acute Current Visit: Yes (3) Wheezing on auscultation SNOMED Code(s): 316377494, 972523739, 159670492 ICD Code: R06.2 - WHEEZING Status: Acute Current Visit: Yes (4) Tobacco abuse SNOMED Code(s): 803846647, 834945064 ICD Code: Z72.0 - TOBACCO USE Status: Acute Current Visit: Yes (5) Cholelithiasis SNOMED Code(s): 441900046 ICD Code: K80.20 - CALCULUS OF GALLBLADDER W/O CHOLECYSTITIS W/O OBSTRUCTION Status: Acute Current Visit: No (6) Depressive disorder SNOMED Code(s): 46193608 ICD Code: F32.9 - MAJOR DEPRESSIVE DISORDER, SINGLE EPISODE, UNSPECIFIED Status: Acute Current Visit: No Problem List Initiated/Reviewed/Updated: Yes Orders Last 24hrs: Active Orders 24 hr Category Date Time Status Notify Provider Consults [RC] ASDIRECTED Care 07/09/16 09:59 Active RT Aerosol Therapy [RC] ASDIRECTED Care 07/09/16 09:16 Active Consult to Physician [CONS] Routine Cons 07/09/16 09:58 Active NPO [Nothing Per Oral Diet] [DIET] Diet 07/08/16 Dinner Active Chest 2V [CR] Routine Exams 07/09/16 09:17 Taken Albuterol/Ipratropium [DuoNeb 3.0-0.5 MG/3 ML] Med 07/09/16 09:15 Active 3 ml NEB Q4HRRT PRN Enoxaparin [Lovenox] Med 07/08/16 17:15 Active 40 mg SUBCUT DAILY FLUoxetine [PROzac] Med 07/09/16 09:00 Active 20 mg PO DAILY Morphine Med 07/08/16 17:05 Active 4 mg IVPUSH Q4H PRN Nicotine [Habitrol] Med 07/08/16 19:00 Active 14 mg TRDERM DAILY Ondansetron [Zofran ODT] Med 07/08/16 17:10 Active 8 mg PO Q8H PRN Pantoprazole [ProTONIX IV] 40 mg Med 07/08/16 17:15 Active Sodium Chloride 0.9% [Normal Saline] 10 ml IVPUSH DAILY Piperacillin/Tazobactam [Piperacil-Tazobact] 4.5 gm Med 07/08/16 22:00 Active Sodium Chloride 0.9% [Normal Saline] 100 ml IV Q6H Sodium Chloride 0.9% [Normal Saline] 1,000 ml Med 07/08/16 17:00 Active IV ASDIRECTED Temazepam [Restoril] Med 07/08/16 17:11 Active 15 mg PO BEDTIME PRN metroNIDAZOLE/Normal Saline [Flagyl 500 MG in NS 100 ML Med 07/08/16 18:00 Active ] 500 mg Premix Bag 1 bag IV Q6H Medication Orders Albuterol/Ipratropium (Duoneb 3.0-0.5 Mg/3 Ml) 3 ml NEB Q4HRRT PRN PRN Reason: Shortness of Breath Enoxaparin Sodium (Lovenox) 40 mg SUBCUT DAILY [facility] Last Admin: 07/09/16 08:14 Dose: 40 mg Admin: 07/08/16 17:22 Dose: 40 mg Fluoxetine HCl (Prozac) 20 mg PO DAILY [facility] Last Admin: 07/09/16 08:11 Dose: 20 mg Sodium Chloride (Normal Saline) 1,000 mls @ 150 mls/hr IV ASDIRECTED [facility] Last Admin: 07/09/16 10:23 Dose: 150 mls/hr Infusion: 07/09/16 09:15 Dose: 150 mls/hr Admin: 07/08/16 17:23 Dose: 100 mls/hr Piperacillin Sod/Tazobactam (Sod 4.5 gm/ Sodium Chloride) 100 mls @ 100 mls/hr IV Q6H [facility] Last Admin: 07/09/16 09:58 Dose: 100 mls/hr Infusion: 07/09/16 05:30 Dose: 100 mls/hr Admin: 07/09/16 04:26 Dose: 100 mls/hr Infusion: 07/08/16 22:08 Dose: 100 mls/hr Admin: 07/08/16 21:08 Dose: 100 mls/hr Metronidazole 500 mg/ Premix 100 mls @ 100 mls/hr IV Q6H [facility] Last Infusion: 07/09/16 07:20 Dose: 100 mls/hr Admin: 07/09/16 06:13 Dose: 100 mls/hr Infusion: 07/09/16 01:20 Dose: 100 mls/hr Admin: 07/09/16 00:18 Dose: 100 mls/hr Infusion: 07/08/16 18:25 Dose: 100 mls/hr Admin: 07/08/16 17:25 Dose: 100 mls/hr Pantoprazole Sodium 40 mg/ (Sodium Chloride) 10 mls @ 300 mls/hr IVPUSH DAILY [facility] Last Admin: 07/09/16 09:54 Dose: 300 mls/hr Infusion: 07/08/16 18:26 Dose: 300 mls/hr Admin: 07/08/16 18:24 Dose: 300 mls/hr Morphine Sulfate (Morphine) 4 mg IVPUSH Q4H PRN PRN Reason: Pain Last Admin: 07/09/16 10:18 Dose: 4 mg Admin: 07/09/16 01:01 Dose: 4 mg Admin: 07/08/16 20:55 Dose: 4 mg Nicotine (Habitrol) 14 mg TRDERM DAILY [facility] Last Admin: 07/09/16 08:11 Dose: 14 mg Admin: 07/08/16 19:58 Dose: 14 mg Ondansetron HCl (Zofran Odt) 8 mg PO Q8H PRN PRN Reason: Nausea/Vomiting Temazepam (Restoril) 15 mg PO BEDTIME PRN PRN Reason: Insomnia Assessment/Plan Comment:: Ok to transition to oral narcotic pain medications. Advance diet as tolerated. Switch to oral antibiotics (ciprofloxacin, flagyl) to treat for a total of 10 days. Would monitor patient take as she starts diet, oral pain meds, and oral antibiotics. If stable later tonight could discharge. Would have follow up in 2 weeks with me in clinic. July 09, 2016: The patient is a 50-year-old lady who was admitted primarily for concern for cholecystitis and cholelithiasis. The patient's examination is consistent with cholecystitis as she does have a positive Curtis sign. General surgery has been consulted. For now with regards to the cholelithiasis is patient will be kept n.p.o., pain controlled with the use of narcotic medications and IV fluid support. Patient was initially placed on Zosyn and Flagyl and concern for intra-abdominal infection and is to be continued. Patient does have an elevation of her ALT and AST at 75 and 59 respectively. Surgery is aware. The patient's white blood cell count had decreased from 12,000 -9000. I will continue the IV antibiotics and the patient will either be seen by surgeon as an outpatient or as an inpatient depending upon the patient's overall condition. She also has been taking fluoxetine for depression and this will be continued. Patient does have generalized wheezing as well as hypoxia. The patient's oxygen saturation was noted to be at a low of 92% while on room air. She does have significant wheezing in both lung ly and I have ordered DuoNeb SVNs every 4 hours as necessary as per respiratory therapy. Patient has nicotine patch available for smoking. She's been strongly counseled with regards to smoking cessation. The patient has improved significantly and the surgeon recommends outpatient surgery we'll consider discharging the patient either later today or tomorrow morning.
[2016-07-09 12:59] VITALS: BP 134/71
[2016-07-09 14:44] LABS: CHLORIDE,CL 111 mmol/L (98-110); SODIUM,NA 139 mmol/L (136-146)
--- NOTE | 2016-07-09 15:13 | PCM.SN ---
- Free Text/Narrative Note: Patient is feeling well today after starting a diet and transitioning to oral medications. I came to see her in the afternoon. Her vitals are stable and she is tolerating a po diet with no increase in her pain. Repeat labs were performed. Her WBC is still within normal limits. Her AST and ALT remain mildly elevated but grossly stable. She would like to go home since she is feeling so well. She remains tender in the RUQ. I am alright with letting her discharge today. I will have her continue cipro and flagyl for ten days. I will see her in clinic on Sunday for re-examination and repeat labs. Should she develop worsening pain, tenderness, fevers, chills, nausea or vomiting she should come back to the ER to be evaluated. I explained that the mild elevation in her LFTs is most likely due to the inflammation around her gallbladder. Her bilirubin is normal which tells me that she is not obstructed. She can take ibuprofen as needed for pain. I advised her to not take any aspirin as this increases her risk of bleeding if we have to perform an operation. I discussed these plans with Dr. Boone who was in agreement with discharging her home. I appreciate medicines excellent care of this patient.
--- NOTE | 2016-07-10 13:44 | PCM.OPNOTE ---
- General Post-Op/Procedure Note Date of Surgery/Procedure: 07/10/16 Operative Procedure(s): Laparoscopic cholecystectomy Findings: Grossly inflamed and distended gallbladder. Pre Op Diagnosis: Acute cholecystitis Post-Op Diagnosis: same Anesthesia Technique: MAC Primary Surgeon: Mey Garcia Fluid Replacement, Intraop: 1,200 Output, Urine Amount: 35 EBL in mLs: 10 Condition: Good Free Text/Narrative:: Intake & Output 07/09/16 07/10/16 07/10/16 22:59 06:59 14:59 Intake Total 250 Output Total 720 Balance -470
--- NOTE | 2016-07-11 11:20 | US ---
EXAM DATE: 07/08/16 PATIENT'S AGE: 50 Patient: NISHA FOLEY Facility: [place], [place] Site . Site : 1965 Study: US Abdomen [id number]/27/[id number] 2:39:16 PM Ordering Physician: Doctor Camacho Final Report: INDICATION: Right upper quadrant pain. TECHNIQUE: Ultrasound abdomen limited. COMPARISON: CT of the abdomen and pelvis 03/12/2016. FINDINGS: The liver is homogeneous in echotexture. There is no intrahepatic biliary dilatation. The extrahepatic common duct is within normal limits at 0.5 cm. The gallbladder is distended and there are shadowing stones within the gallbladder in addition to sludge. There is gallbladder wall thickening and there is a trace amount of pericholecystic fluid. The pancreatic tail was not well seen due to bowel gas. The pancreas is otherwise unremarkable. The right kidney measures 10.1 cm in length. No hydronephrosis. Note is made of a 2.4 cm parapelvic cyst that was present on prior CT. Upper abdominal aorta and IVC unremarkable. IMPRESSION: The gallbladder is distended. Shadowing stones are identified within the gallbladder in addition to sludge. There is gallbladder wall thickening and a trace amount of pericholecystic fluid. Findings are suspicious for acute cholecystitis. No significant biliary dilatation. Results discussed with Dr. Ley, 3:20 p.m. 07/08/2016. Dictated by Yg Floyd MD @ 07/08/2016 3:19:56 PM Dictated by: Yg Floyd MD @ 07/08/2016 15:20:03 (Electronic Signature) Report Signed by Proxy. MARCIANO
--- NOTE | 2016-07-11 12:58 | CR ---
EXAM DATE: 07/08/16 PATIENT'S AGE: 50 Patient: NISHA FOLEY Facility: [place], [place] Site . Site : 1965 Study: XRay Chest [id number]/28/2017 9:41:34 AM Ordering Physician: Mely Romero Final Report: INDICATION: Wheezing hypoxia TECHNIQUE: Two view chest. FINDINGS: The lungs are clear. The heart, mediastinum and pulmonary vessels are of normal size. There is no evidence of pleural disease. IMPRESSION: Negative chest. Dictated by Nola Redd MD @ Jul 09 2016 9:45AM (Electronic Signature) Report Signed by Proxy. YEYOD
== END 2016-07-09 17:11 | disposition home or self-care (01) ==
LOC: MW.ED 12:02 → MW.MS 16:38
PROVIDERS: ADMIT Internal Medicine; ATTEND Internal Medicine
DX: K80.00 Calculus of gallbladder with acute cholecystitis without obstruction (principal); K80.50 Calculus of bile duct without cholangitis or cholecystitis without obstruction; R09.02 Hypoxemia; R06.2 Wheezing; F17.210 Nicotine dependence, cigarettes, uncomplicated; F32.9 Major depressive disorder, single episode, unspecified; G89.29 Other chronic pain; M54.9 Dorsalgia, unspecified; Z90.89 Acquired absence of other organs; Z79.82 Long term (current) use of aspirin; Z79.899 Other long term (current) drug therapy
CPT/HCPCS: 36415; 71020; 76705; 80053; 81001; 81025; 83735; 84100; 85025; 96361; 96374; 96375; 99285; A9270; C9113; J1650; J1885; J2270; J2405; J2543; J7030; J7040; J7050; 96365; 96366; 96367; 96372; 96376; 99284; G0378